=== PATIENT | female | born 1990 | race Caucasian/White ===

== ENCOUNTER 2018-07-15 14:28 | Emergency (ER) | payer MEDICAID ==
[~2018-07-15] VITALS: Ht 167.6 cm; Wt 81.6 kg
[2018-07-15 14:47] VITALS: BP_SYST 132
--- NOTE | 2018-07-15 14:55 | NUR ---
Patient to ER bed 1 to gown for evaluation. Side rails up. Report given to Jayne ULRICH.
[2018-07-15] MEDS ORDERED: IPRATROPIUM/ALBUTEROL SULFATE 3 ML AMPUL.NEB (DUONEB) INH ONE (15:00)
[2018-07-15] MEDS ORDERED: DEXAMETHASONE SOD PHOSPHATE 10 MG/ML VIAL IM ONE (15:00)
--- NOTE | 2018-07-15 15:00 | NUR ---
Pt AAOx4 ambulated into ED c/o nonproductive cough x 1 week. Pt denies N/V/D/fever/headache. Skin pink dry and warm, coughing present. No other injuries/complaints per pt/noted. Will continue to monitor.
--- NOTE | 2018-07-15 15:03 | NUR ---
ER RAYMOND Guerrier examining patient.
--- NOTE | 2018-07-15 15:07 | NUR ---
Respiratory at bedside for breathing tx
--- NOTE | 2018-07-15 15:12 | NUR ---
Decadron 10mg IM administered to L deltoid. Pt tolerated well. No adverse reactions noted.
[2018-07-15 15:25] VITALS: BP_SYST 120
--- NOTE | 2018-07-15 15:25 | NUR ---
Patient given written and verbal discharge instructions and verbalizes understanding. ER MD discussed with patient the results and treatment provided. Patient in stable condition. ID arm band removed. Rx of Motrin, Prednisone, Promethazine, Azithromycin, Albuterol given. Patient educated on pain management and to follow up with PMD. Pain Scale 0. Opportunity for questions provided and answered. Medication side effect fact sheet provided. Patient left ER in no acute distress, ambulating without difficulty with slow, steady gait. No adverse reaction noted to medication. Patient reports that she is feeling better and breathing easier.
== END 2018-07-15 15:25 | disposition home or self-care (01) ==
LOC: SED 14:28
DX: J06.9 Acute upper respiratory infection, unspecified (principal); F17.210 Nicotine dependence, cigarettes, uncomplicated; R03.0 Elevated blood-pressure reading, without diagnosis of hypertension
CPT/HCPCS: 94640; 96372; 99283; J1100; J7620